=== PATIENT | male | born 1995 ===

== ENCOUNTER 2022-06-04 17:59 | Emergency (ER) | payer MEDICAID ==
[2022-06-04] MEDS ORDERED: Sodium Chloride 0.9% 1,000 ML IV ONE (19:02)
[2022-06-04] MEDS ORDERED: Ondansetron 4 MG/2 ML SDV IVPUSH ONE (19:02)
[2022-06-04] MEDS ORDERED: Ketorolac 30 MG/ML SDV IVPUSH ONE (19:02)
[2022-06-04 20:06] LABS: CORONAVIRUS COVID-19 NAA NEGATIVE (NEGATIVE); INFLUENZA A NAA NEGATIVE (NEGATIVE); INFLUENZA B NAA NEGATIVE (NEGATIVE); RESPIRATORY SYNCYTIAL VIR NAA NEGATIVE (NEGATIVE)
== END 2022-06-04 21:28 | disposition home or self-care (01) ==
LOC: MW.ED 17:59
DX: R51.9 Headache, unspecified (principal); B34.9 Viral infection, unspecified; Z79.899 Other long term (current) drug therapy; Z20.822 Contact with and (suspected) exposure to COVID-19
CPT/HCPCS: 0241U; 70450; 82947; 93005; 96361; 96374; 96375; 99284; J1885; J2405; J7030